=== PATIENT | female | born 1975 | race Two or more races ===

== ENCOUNTER 2024-09-06 13:06 | Outpatient (CLI) | payer OTHER | END 2024-09-06 13:16 | disposition home or self-care (01) | LOC: EDBD 13:06 → MAMO-SONO 13:06 | PROVIDERS: ATTEND Family Medicine | DX: N92.0 Excessive and frequent menstruation with regular cycle (principal); D50.9 Iron deficiency anemia, unspecified; Z12.31 Encounter for screening mammogram for malignant neoplasm of breast ==

== ENCOUNTER 2024-09-14 07:50 | Outpatient (CLI) | payer OTHER | END 2024-09-14 07:56 | disposition home or self-care (01) | LOC: SONOGRAMA 07:50 | PROVIDERS: ATTEND Family Medicine | DX: R19.00 Intra-abdominal and pelvic swelling, mass and lump, unspecified site (principal) ==

== ENCOUNTER 2024-11-04 10:06 | Outpatient (CLI) | payer OTHER | END 2024-11-04 10:10 | disposition home or self-care (01) | LOC: TOM 10:06 | PROVIDERS: ATTEND Specialist | DX: R10.33 Periumbilical pain (principal) | CPT/HCPCS: 74177; Q9965 ==

== ENCOUNTER 2025-03-30 13:42 | Outpatient (CLI) | payer OTHER | END 2025-03-30 13:53 | disposition home or self-care (01) | LOC: MRI 13:42 | PROVIDERS: ATTEND Obstetrics & Gynecology | DX: D25.9 Leiomyoma of uterus, unspecified (principal) | CPT/HCPCS: 72197; Q9965 ==